=== PATIENT | male | born 1955 | race Caucasian/White ===

== ENCOUNTER 2023-06-24 17:15 | Emergency (ER) | payer MEDICARE, BC, SELFPAY ==
[2023-06-24] VITALS (14 sets, daily range): BP systolic 144–154; BP diastolic 77–93; PULSE 74–80; RESP 12–36; O2SAT 98–100
--- NOTE | ~2023-06-24 | XR_ITS ---
EXAMINATION: XR shoulder LT min 2V DATE: 06/24/2023 18:00 INDICATION: Left shoulder pain post fall TECHNIQUE: AP internally and externally rotated and transscapular Y views of the left shoulder were o btained. COMPARISON: None FINDINGS: Normal alignment. No fracture. Glenohumeral joint is normal. Mild to moderate acromioclavicular oste oarthritis with small inferiorly directed osteophytes. Soft tissues are unremarkable. Decreased lung volumes which could be due to expiratory phase of imaging. IMPRESSION: Mild to moderate acromioclavicular osteoarthritis. No acute osseous abnormality. Reviewed, dictated and finalized at location A. IMPRESSION: Mild to moderate acromioclavicular osteoarthritis. No acute osseous abnormality .
--- NOTE | ~2023-06-24 | XR_ITS ---
EXAMINATION: XR chest 1V portable DATE: 06/24/2023 18:55 INDICATION: Left-sided rib fracture TECHNIQUE: frontal view of the chest was obtained. COMPARISON: 06/28/2010 FINDINGS: Chronic mild elevation the left hemidiaphragm. Linear discoid atelectasis at the lateral left lung ba se. No other airspace opacities, pulmonary edema, pleural effusion or pneumothorax. The cardiomediast inal silhouette is normal. IMPRESSION: 1. Chronic mild elevation of the left hemidiaphragm with mild discoid atelectasis in the lateral left lung base. Reviewed, dictated and finalized at location A. IMPRESSION: 1. Chronic mild elevation of the left hemidiaphragm with mild discoid atelectas is in the lateral left lung base.
--- NOTE | 2023-06-24 17:30 | ECG_ITS ---
Measurements Intervals [place] Rate: 76 P: -16 ME: 127 QRS: -10 QRSD: 86 T: 3 QT: 364 QTc: 409 Interpretive Statements SINUS RHYTHM BORDERLINE T WAVE ABNORMALITY- ANTERIOR LEADS BASELINE ARTIFACT- V3 BORDERLINE ECG NO PREVIOUS ECG AVAILABLE FOR COMPARISON Electronically Signed On 06-24-2023 18:41:55 CDT by Natalio Wilhelm D.O.
--- NOTE | 2023-06-24 18:12 | ED.FALL ---
HPI - Fall General Chief Complaint: Fall Stated Complaint: fall/ left shoulder pain, sob Time Seen by Provider: 06/24/23 18:12 History of Present Illness HPI Narrative: Patient is a 68-year-old male who presents to the emergency department this afternoon after fall. Patient states that he was working in his garage when he tripped over something and fell onto his left shoulder. Ever since then patient states that every time he tries to move his left shoulder it causes him a lot of pain which radiates into his lateral chest wall/rib cage. Patient states the pain is preventing him from being able to take a deep breath. He denies any shortness of breath prior to the fall or any symptoms prior to falling. He admits that the fall was purely mechanical, denies any lightheadedness or near syncopal episodes prior to the fall. Patient denies hitting his head and denies any blood thinner use. He was ambulatory after the fall and was able to get himself back up without any difficulty. Patient chest pain otherwise, any nausea, vomiting, abdominal pain, dysuria, hematuria, constipation, diarrhea, melena, hematochezia, fevers or chills. He also denies any headaches, dizziness, lightheadedness, blurry visions, focal weakness, numbness and or tingling. There are no other modifying, alleviating, or precipitating factors at this time. Related Data Allergies Allergy/AdvReac Type Severity Reaction Status Date / Time No Known Allergies Allergy Mild Verified 06/24/23 17:35 Review of Systems Review of Systems: All systems are reviewed and are negative unless stated otherwise in the HPI. Exam Narrative: General: Alert, awake, afebrile, in no acute distress. HEENT: PERRL, no rhinorrhea, no post nasal drip, oropharynx clear. Neck: Trachea midline, no JVD, no lymphadenopathy. Cardiovascular: Regular rate and rhythm, no murmurs, rubs or gallops, no peripheral edema. Respiratory: Clear to auscultation bilaterally, no tachypnea, no wheezing, no rhonchi, no rubs, no respiratory distress. Abdomen: Soft, nontender, nondistended, no rebound, no guarding, no peritoneal signs. Musculoskeletal: No joint swelling or deformity, normal muscle tone, limited range of motion at the shoulder joint due to pain. Skin: No rashes or petechia, no signs of infection. Psychiatric: Alert and oriented, normal behavior and judgment for situation. Neurological: Alert and oriented to person, place, and time. Follows all commands. No focal deficits, speech is clear and fluent. Course Vital Signs Vital signs: Vital Signs Pulse Rate 74 06/24/23 17:27 Respiratory Rate 14 06/24/23 17:27 Pulse Oximetry 100 06/24/23 17:27 Pulse Rate 77 06/24/23 19:14 Respiratory Rate 15 06/24/23 19:14 Blood Pressure 152/87 H 06/24/23 19:14 Pulse Oximetry 100 06/24/23 19:14 MDM - Fall MDM Narrative Medical decision making narrative: The patient was evaluated by myself in the emergency department. History is obtained from patient who is an independent historian and physical exam was performed. External medical records were reviewed at this time. IV was established and pertinent tests were ordered. Patient was administered 1 dose of oral [place] 5-325 mg. EKG was obtained which revealed sinus rhythm at a rate of [address] changes, T wave inversions or evidence of acute ischemia. EKG was independently interpreted by me and is currently pending official cardiology read. Imaging studies obtained included right shoulder x-ray and chest x-ray which was independently interpreted by me revealing no acute process, which is pending final radiology interpretation. Differential diagnosis considerations include shoulder fracture, dislocation, rotator cuff injury, rib fracture, and pulmonary contusion. I have evaluated and discussed social determinants of health with the patient that could potentially impact subsequent diagnosis and treatment plans. On repeat asses
[2023-06-24] MEDS: HYDROcodone/acetaminophen (*CRX) 5-325 MG TABLET 1 TAB PO (19:28)
== END 2023-06-24 20:02 | disposition home or self-care (01) ==
PROVIDERS: Emergency Provider Emergency Medicine; PCP Internal Medicine Infectious Disease
DX: S49.92XA Unspecified injury of left shoulder and upper arm, initial encounter (principal); M19.012 Primary osteoarthritis, left shoulder; R94.31 Abnormal electrocardiogram [ECG] [EKG]; W18.09XA Striking against other object with subsequent fall, initial encounter
CPT/HCPCS: 71045; 73030; 93005; 99284; A9270